=== PATIENT | male | born 1975 | race Caucasian/White ===

== ENCOUNTER 2019-01-31 16:34 | Emergency (ER) | payer MEDICARE ==
[2019-01-31 16:42] VITALS: BP 146/88
[2019-01-31] MEDS ORDERED: TETRACAINE HCL 0.5% OPH SOLN 4 ML OS ONE (18:00)
--- NOTE | 2019-01-31 18:01 | ER Document Report ---
ED Medical Screen (RME) - General Chief Complaint: Foreign Body in Eye Stated Complaint: RIGHT EYE PROBLEM Time Seen by Provider: 01/31/19 17:59 Mode of Arrival: Ambulatory Information source: Patient Notes: Patient presents to the emergency department chief complaint of right eye pain. Patient reports 1 week ago he was working with metal and got a piece of metal in his eye. He reports that he went to urgent care and was diagnosed with a corneal abrasion. He states he has been taking antibiotic drops, he is not sure what the name is. He reports he went to urgent care today for a follow-up where they told him that he had a worsening infection to his eye. He reports pain to the left eye with occasional blurred vision. He does not wear contact lenses. I have greeted and performed a rapid initial assessment of this patient. A comprehensive ED assessment and evaluation of the patient, analysis of test results and completion of the medical decision making process will be conducted by additional ED providers. I have specifically instructed the patient or family members with the patient to immediately return to any nursing staff should anything change in the patient's condition or with their chief complaint. This medical record was dictated with voice recognizing software. There may be grammatical, syntax errors that are unintended. TRAVEL OUTSIDE OF THE [place] IN LAST 30 DAYS: No - Related Data Allergies/Adverse Reactions: strawberry Allergy (Verified 01/31/19 16:36) pesto sauce Allergy (Uncoded 01/31/19 16:36) tb titer Allergy (Uncoded 01/31/19 16:36) Physical Exam - Vital signs Vitals: Temp Pulse Resp BP Pulse Ox 98.3 F 95 16 146/88 H 96 01/31/19 16:40 01/31/19 16:40 01/31/19 16:40 01/31/19 16:40 01/31/19 16:40 Course - Vital Signs Vital signs: Temp Pulse Resp BP Pulse Ox 98.3 F 95 16 146/88 H 96 01/31/19 16:40 01/31/19 16:40 01/31/19 16:40 01/31/19 16:40 01/31/19 16:40
--- NOTE | 2019-01-31 23:28 | ER Document Report ---
ED General - General Chief Complaint: Foreign Body in Eye Stated Complaint: RIGHT EYE PROBLEM Time Seen by Provider: 01/31/19 17:59 Mode of Arrival: Ambulatory Notes: Patient is a 43-year-old male presents with a metallic foreign body lodged in his right eye. States this occurred while he was working on a piece of cast iron 1 week ago. Was seen at [facility], started on eyedrops. One back today because he continued to have pain and redness to the eye and was informed that he had a metallic foreign body in eye. Patient denies any change in his vision. It is a burning, constant, throbbing discomfort to the eye. Regards symptoms as being severe. No exacerbating or alleviating factors. No history of the same in the past. Denies use of contacts. No injury to any location. TRAVEL OUTSIDE OF THE [place] IN LAST 30 DAYS: No - Related Data Allergies/Adverse Reactions: strawberry Allergy (Verified 01/31/19 16:36) pesto sauce Allergy (Uncoded 01/31/19 16:36) tb titer Allergy (Uncoded 01/31/19 16:36) Past Medical History - General Information source: Patient - Social History Smoking Status: Never Smoker Chew tobacco use (# tins/day): No Frequency of alcohol use: Social Drug Abuse: None Lives with: Alone Family History: Reviewed & Not Pertinent Patient has suicidal ideation: No Patient has homicidal ideation: No Renal/ Medical History: Denies: Hx Peritoneal Dialysis Past Surgical History: Reports: Hx Orthopedic Surgery - left knee Review of Systems - Review of Systems Notes: Constitutional: Negative for fever. HENT: Negative for sore throat. Eyes: Positive for pain, redness to the right eye Cardiovascular: Negative for chest pain. Respiratory: Negative for shortness of breath. Gastrointestinal: Negative for abdominal pain, vomiting or diarrhea. Genitourinary: Negative for dysuria. Musculoskeletal: Negative for back pain. Skin: Negative for rash. Neurological: Negative for headaches, weakness or numbness. 10 point ROS negative except as marked above and in HPI. Physical Exam - Vital signs Vitals: Temp Pulse Resp BP Pulse Ox 98.3 F 95 16 146/88 H 96 01/31/19 16:40 01/31/19 16:40 01/31/19 16:40 01/31/19 16:40 01/31/19 16:40 Interpretation: Hypertensive Notes: PHYSICAL EXAMINATION: GENERAL: Well-appearing, well-nourished and in no acute distress. HEAD: Atraumatic, normocephalic. EYES: Conjunctival injection on the right, there is a small metallic foreign body embedded in the mid nasal cornea to the right eye. Accessory motions intact pupillary reflex intact. Visual acuity intact on bedside testing. ENT: Moist mucous membranes. NECK: Normal range of motion LUNGS: Normal work of breathing HEART: 2+ radial pulses bilaterally EXTREMITIES: no pitting or edema. No cyanosis. NEUROLOGICAL: No focal neurological deficits. Moves all extremities spontaneously and on command. PSYCH: Normal mood, normal affect. SKIN: Warm, Dry, normal turgor, no rashes or lesions noted. Course - Re-evaluation Re-evalutation: 01/31/19 23:29 Patient was seen for metallic foreign body in his right eye. This was removed with ease after initiation of tetracaine to the eye using a 22-gauge needle. Corneal abrasion noted. Patient is already on Polytrim drops as well as erythromycin ointment. Have advised that he continues these and that he needs to follow-up with ophthalmology within the next 24 to 48 hours. Patient states understanding and states understanding of return precautions. - Vital Signs Vital signs: Temp Pulse Resp BP Pulse Ox 98.3 F 95 16 146/88 H 96 01/31/19 16:40 01/31/19 16:40 01/31/19 16:40 01/31/19 16:40 01/31/19 16:40 Discharge - Discharge Clinical Impression: Foreign body, eye Qualifiers: Encounter type: initial encounter Laterality: right Qualified Code(s): T15.91XA - Foreign body on external eye, part unspecified, right eye, initial encounter Condition: Good Disposition: HOME, SELF-CARE Additional Instructions: You were seen tonight for a metallic foreign body in your left eye. This was able to be removed. Please use the Polytrim drops 3 times daily for the next 5 days. You may use a saline based eyedrop if your having irritation of the eye. Please follow-up with an spin table operator or freight car [facility] in the next several days if you have any additional concerns or symptoms. Return for any additional concerns you may have including increasing pain, drainage from the eye, swelling around the eye, changes in vision to the eye, or any other symptoms that are worrisome to you.
== END 2019-01-31 23:29 | disposition home or self-care (01) ==
LOC: ER 16:34
DX: T15.91XA Foreign body on external eye, part unspecified, right eye, initial encounter (principal); X58.XXXA Exposure to other specified factors, initial encounter
CPT/HCPCS: 99283; 65220; J3490

== ENCOUNTER → 2019-02-10 | Outpatient (CLI) | payer MEDICARE ==
[2019-02-10 10:35] LABS: HEMOGLOBIN 15.1 g/dL (13.5-17.0); MEAN CORPUSCULAR HEMOGLOBIN 28.4 pg (27.0-33.4); MEAN CORPUSCULAR HGB CONC 33.6 g/dL (32.0-36.0); MEAN CORPUSCULAR VOLUME 85 fl (80-97); PLATELET COUNT 280 10^3/uL (150-450); RED BLOOD COUNT 5.32 10^6/uL (4.35-5.55); RED CELL DISTRIBUTION WIDTH 13.6 % (11.5-14.0); WHITE BLOOD COUNT 6.3 10^3/uL (4.0-10.5)
[2019-02-10 10:57] LABS: ALANINE AMINOTRANSFERASE 26 U/L (21-72); ALBUMIN 4.3 g/dL (3.5-5.0); ALKALINE PHOSPHATASE 106 U/L (38-126); ANION GAP 12 (5-19); ASPARTATE AMINO TRANSFERASE 20 U/L (17-59); BILIRUBIN,DIRECT 0.3 mg/dL (0.0-0.4); BILIRUBIN,TOTAL 0.5 mg/dL (0.2-1.3); BLOOD UREA NITROGEN 14 mg/dL (7-20); CALCIUM 9.4 mg/dL (8.4-10.2); CARBON DIOXIDE 25 mmol/L (22-30); CHLORIDE 105 mmol/L (98-107); GLUCOSE 112 mg/dL (75-110); POTASSIUM 4.6 mmol/L (3.6-5.0); SODIUM 141.8 mmol/L (137-145); TOTAL PROTEIN 7.7 g/dL (6.3-8.2); TRIGLYCERIDES 108 mg/dL (<150)
[2019-02-10 11:08] LABS: DIRECT LDL 131 mg/dL (<100)
== END ==
LOC: OD 09:35
PROVIDERS: ATTEND Physician Assistant
DX: R07.9 Chest pain, unspecified (principal); I10 Essential (primary) hypertension; R00.2 Palpitations; R06.00 Dyspnea, unspecified
CPT/HCPCS: 36415; 80048; 80061; 80076; 83735; 83880; 84443; 85027